=== PATIENT | male | born 1980 | race Caucasian/White ===

== ENCOUNTER 2018-04-18 09:59 | Emergency (ER) | payer OTHER ==
--- NOTE | 2018-04-18 11:19 | XRAY Report ---
Reason: fall, L rib pain Procedure Date: 04/18/2018 Accession Number: [id number] / [id number] Procedure: XR - Ribs w/PA Chest LT CPT Code: FULL RESULT: EXAM: LEFT RIB RADIOGRAPHY EXAM DATE: 04/18/2018 11:06 AM. CLINICAL HISTORY: Left chest wall pain. COMPARISON: 04/16/2014 3:39 PM. TECHNIQUE: 1 view of the chest and 2 views of the ribs. FINDINGS: Bones: Deformity of the left clavicle related to old trauma is again seen. No rib fracture or chest wall deformity is identified. Lungs: No focal opacities. No pneumothorax. No pleural effusions. Mediastinum: Heart and mediastinal contours are unremarkable. Other: None. IMPRESSION: No acute osseous or cardiopulmonary abnormality demonstrated. RADIA
--- NOTE | 2018-04-18 12:10 | ED Physician Documentation ---
PD HPI TRUNK INJURY - Stated complaint Stated Complaint: L SIDE RIB SHARP PX WITH BREAHTING - Chief complaint Chief Complaint: Trauma Ch/Bk - History obtained from History obtained from: Patient - History of Present Illness Location: Left chest Type of injury: Fall Timing - onset: How many hours ago (4) Timing - details: Gradual onset Pain level max: 7 Pain level now: 4 Quality: Pain, Sharp Improved by: Rest Worsened by: Moving, Palpating Associated symtptoms: No: Weakness, Numbness, Tingling, Swelling, Discoloration, Feel faint, Syncope Where injury occured: [place] - Additional information Additional information: Patient was playing [employer] and landed on his left arm, injuring his left ribs. Worse with movement Review of Systems Constitutional: denies: Fever Cardiac: denies: Palpitations Respiratory: denies: Dyspnea, Cough, Hemoptysis, Wheezing GI: denies: Vomiting Skin: denies: Rash PD PAST MEDICAL HISTORY - Past Medical History Past Medical History: No Cardiovascular: None Respiratory: None Endocrine/Autoimmune: None GI: None : None HEENT: None Psych: None Musculoskeletal: Other Derm: None - Past Surgical History General: Other HEENT: Rhinoplasty - Present Medications Home Medications: Ambulatory Orders Medication Instructions Recorded Confirmed Ibuprofen [Motrin] 800 mg PO Q8H PRN #30 tablet 04/18/18 - Allergies Allergies/Adverse Reactions: Allergies Allergy/AdvReac Type Severity Reaction Status Date / Time morphine Allergy Hives Verified 04/18/18 10:26 acetaminophen [From Roxicet] AdvReac Nausea Verified 04/18/18 10:26 oxycodone HCl * AdvReac Nausea Verified 04/18/18 10:26 [From Roxicet] - Social History Does the pt smoke?: No Smoking Status: Never smoker PD ED PE NORMAL - Vitals Vital signs reviewed: Yes - General General: Alert and oriented X 3, No acute distress - HEENT HEENT: Moist mucous membranes - Neck Neck: Supple, no meningeal sign - Cardiac Cardiac: RRR - Respiratory Respiratory: No respiratory distress, Clear bilaterally, Other (Tender to palpation over the left ribs, approximately 7 through 10, no ecchymosis. Tenderness is in the mid axillary line. No ecchymosis) - Abdomen Abdomen: Soft, Non tender, Non distended - Derm Derm: Warm and dry - Neuro Neuro: Alert and oriented X 3 - Psych Psych: Normal mood, Normal affect Results - Vitals Vitals: Vital Signs - 24 hr 04/18/18 04/18/18 10:20 12:19 Temperature 36.7 C 36.6 C Heart Rate 78 75 Respiratory 16 16 Rate Blood Pressure 134/91 H 130/88 H O2 Saturation 97 97 Oxygen O2 Source Room air - Rads (name of study) Left ribs with chest x-ray Radiology: Prelim report reviewed, EMP read contemporaneously, See rad report (No acute abnormality) PD MEDICAL DECISION MAKING - ED course Complexity details: reviewed results, re-evaluated patient, considered differential, d/w patient ED course: 37-year-old male with a contusion versus minor rib fracture not visible on x- ray. No pneumothorax or hemothorax. Will continue supportive care and follow- up with his doctor. Patient counseled regarding signs and symptoms for which I believe and urgent re-evaluation would be necessary. Patient with good understanding of and agreement to plan and is comfortable going home at this time This document was made in part using voice recognition software. While efforts are made to proofread this document, sound alike and grammatical errors may occur. Departure - Departure Disposition: 01 Home, Self Care Clinical Impression: Rib contusion Qualifiers: Encounter type: initial encounter Laterality: left Qualified Code(s): S20.212A - Contusion of left front wall of thorax, initial encounter Condition: Good Instructions: ED Contusion Vs Minor Fx Rib Follow-Up: MARCELA ROBIN MD [Primary Care Provider] - Within 1 week Prescriptions: Ibuprofen [Motrin] 800 mg PO Q8H PRN #30 tablet PRN Reason: PAIN &/OR FEVER Comments: You can use Tylenol or Motrin as needed for pain. Follow-up with your doctor in 1 week. Your x-rays are normal today. Return if you worsen Discharge Date/Time: 04/18/18 12:20
[2018-04-18 12:20] VITALS: BP 130/88
== END 2018-04-18 12:20 | disposition home or self-care (01) ==
LOC: ED 09:59
DX: S20.212A Contusion of left front wall of thorax, initial encounter (principal); Y93.74 Activity, frisbee
CPT/HCPCS: 99283